=== PATIENT | female | born 2005 | race Asian ===

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

== ENCOUNTER 2023-02-15 06:57 | Emergency (ER) | payer OTHER ==
[~2023-02-15] VITALS: Ht 160 cm; Wt 62.1 kg
[2023-02-15 09:30] VITALS: BP 91/70; TEMP 100.2
== END 2023-02-15 09:30 | disposition home or self-care (01) ==
LOC: ED 06:57
DX: J32.9 Chronic sinusitis, unspecified (principal); J40 Bronchitis, not specified as acute or chronic
CPT/HCPCS: 87502; 87651; 94664; 99283